=== PATIENT | female | born 1970 | race Two or more races ===

== ENCOUNTER 2019-01-02 01:51 | Emergency (ER) | payer OTHER ==
[~2019-01-02] VITALS: Ht 154.9 cm; Wt 49.0 kg
--- NOTE | 2019-01-02 02:26 | NUR ---
BARREL BRANDER AT BEDSIDE FOR BLOOD DRAW
--- NOTE | 2019-01-02 02:27 | NUR ---
PT UNABLE TO PROVIDE URINE SAMPLE AT THIS TIME. MD AWAN
--- NOTE | 2019-01-02 02:31 | NUR ---
ULTRASOUND AT BEDSIDE
[2019-01-02 02:42] LABS: CALCIUM, SERUM 8.3 mg/dL (8.5-10.1); CREATININE 0.7 mg/dL (0.6-1.3); POTASSIUM 3.7 mmol/L (3.5-5.1)
[2019-01-02 02:47] LABS: BASOPHILS % (AUTO) 0.4 % (0.0-2.0); EOSINOPHILS % (AUTO) 1.4 % (0.0-6.0); HEMATOCRIT 31 % (33-45); HEMOGLOBIN 10.7 g/dL (11.5-14.8); LYMPHOCYTES # (AUTO) 2.9 /CMM (0.8-4.8); LYMPHOCYTES % (AUTO) 37.2 % (20.0-44.0); MEAN CORPUSCULAR HGB CONC 35 g/dl (31.0-36.0); MEAN CORPUSCULAR VOLUME 98 fL (82-100); MONOCYTES # (AUTO) 0.6 /CMM (0.1-1.30); MONOCYTES % (AUTO) 7.8 % (2.0-12.0); NEUTROPHILS # (AUTO) 4.1 /CMM (1.8-8.9); NEUTROPHILS % (AUTO) 53.2 % (43.0-81.0); PLATELET COUNT (AUTO) 274 /CMM (150-450); RED BLOOD CELL COUNT(AUTO) 3.13 MIL/uL (4.0-5.2); WHITE BLOOD COUNT (AUTO) 7.8 K/uL (4.3-11.0)
--- NOTE | 2019-01-02 02:58 | NUR ---
PT UNABLE TO PROVIDE URINE SAMPLE AT THIS TIME. AWARE. PROVIDED PT WITH WATER
--- NOTE | 2019-01-02 03:38 | NUR ---
PT UNABLE TO PROVIDE URINE SAMPLE, AWARE
--- NOTE | 2019-01-02 04:45 | NUR ---
PT UNABLE TO PROVIDE URINE SAMPLE, AWARE
--- NOTE | 2019-01-02 05:40 | NUR ---
PT UNABLE TO PROVIDE URINE SAMPLE. MD AWAN
--- NOTE | 2019-01-02 05:54 | NUR ---
URINE COLLECTED AND SENT TO LAB
[2019-01-02 06:01] LABS: APPEARANCE,URINE Clear (CLEAR); BILIRUBIN,URINE Negative (NEGATIVE); BLOOD, URINE Small Ery/uL (NEGATIVE); COLOR,URINE Yellow (YELLOW); KETONES,URINE 15 (NEGATIVE); LEUKOCYTE ESTERASE ,URINE Negative (NEGATIVE); NITRITE, URINE Negative (NEGATIVE); PROTEIN,URINE Trace mg/dl (NEGATIVE); UGLUCOSE Negative (NEGATIVE); UROBILINOGEN,URINE 0.2 EU/dL (0.2)
--- NOTE | 2019-01-02 06:15 | NUR ---
Patient discharged to home in stable condition. Written and verbal after care instructions given. Patient verbalizes understanding of instruction. Pt ambulatory with a steady gait.
[2019-01-02 06:18] VITALS: BP 110/68
[2019-01-02 06:45] LABS: BACTERIA,URINE None seen /HPF (None Seen); RBC,URINE 0-2 /HPF (0-2); SQUAMOUS EPITHELIAL CELL,UR None Seen /HPF (None Seen); WBC,URINE NONE SEEN /HPF (0-3)
[2019-01-02] MEDS ORDERED: FOLI1TAB16 PO (10:56)
[2019-01-02] MEDS ORDERED: AZEL205. BNOSTRILS (10:56)
[2019-01-02] MEDS ORDERED: CYAN10009 PO (10:56)
[2019-01-02] MEDS ORDERED: CHOL100044 PO (10:56)
[2019-01-02] MEDS ORDERED: NORG1TAB11 PO (10:56)
[2019-01-04] MEDS ORDERED: PROG100C15 PO (09:16)
[2019-01-04] MEDS ORDERED: FERR325T23 PO (09:16)
== END 2019-01-02 06:18 | disposition home or self-care (01) ==
LOC: ER 01:51
DX: D25.9 Leiomyoma of uterus, unspecified (principal); N93.9 Abnormal uterine and vaginal bleeding, unspecified; D64.9 Anemia, unspecified
CPT/HCPCS: 36415; 76856-TC; 80048-TC; 81000-TC; 84703-TC; 85025-TC

== ENCOUNTER 2019-01-02 09:39 | Inpatient (IN) | payer OTHER ==
[~2019-01-02] VITALS: Ht 154.9 cm; Wt 60.3 kg
[2019-01-02] VITALS (9 sets, daily range): BP systolic 88–113; BP diastolic 52–62
--- NOTE | 2019-01-02 10:00 | NUR ---
PATIENT BIB [facility] FROM MD OFFICE. WITH REPORT OF NEAR SYNCOPAL EPISODE. PATIENT DENIES REMEMBERING WHAT HAPPENED. VERBALIZES SHE JUST REMEMBERS LYING DOWN ON THE FLOOR. DENIES ANY PAIN OR DISCOMFORT. ALERT AND ORIENTED X 4, NO ACUTE DISTRESS.
--- NOTE | 2019-01-02 10:05 | NUR ---
DR BEAL AT BEDSIDE
[2019-01-02 10:22] LABS: BASOPHILS % (AUTO) 0.4 % (0.0-2.0); EOSINOPHILS % (AUTO) 0.2 % (0.0-6.0); HEMATOCRIT 22 % (33-45); HEMOGLOBIN 7.9 g/dL (11.5-14.8); LYMPHOCYTES # (AUTO) 2.2 /CMM (0.8-4.8); LYMPHOCYTES % (AUTO) 25.7 % (20.0-44.0); MEAN CORPUSCULAR HGB CONC 36 g/dl (31.0-36.0); MEAN CORPUSCULAR VOLUME 97 fL (82-100); MONOCYTES # (AUTO) 0.4 /CMM (0.1-1.30); MONOCYTES % (AUTO) 5.2 % (2.0-12.0); NEUTROPHILS # (AUTO) 5.9 /CMM (1.8-8.9); NEUTROPHILS % (AUTO) 68.5 % (43.0-81.0); PLATELET COUNT (AUTO) 228 /CMM (150-450); RED BLOOD CELL COUNT(AUTO) 2.29 MIL/uL (4.0-5.2); WHITE BLOOD COUNT (AUTO) 8.6 K/uL (4.3-11.0)
[2019-01-02 10:25] LABS: CALCIUM, SERUM 7.9 mg/dL (8.5-10.1); CREATININE 0.8 mg/dL (0.6-1.3); POTASSIUM 3.4 mmol/L (3.5-5.1)
[2019-01-02] MEDS ORDERED: IV NS 0.9% 1,000 ML BAG IV ONE (10:30)
[2019-01-02 10:32] LABS: ALBUMIN 3.3 g/dL (3.4-5.0); BILIRUBIN,DIRECT 0.1 mg/dL (0.0-0.2); BILIRUBIN,TOTAL 0.4 mg/dL (0.2-1.0)
--- NOTE | 2019-01-02 10:40 | NUR ---
PATIENT WITH C/O FEELING NAUSEATED, NO VOMITING EPISODE. DR RIVAS MADE AWARE AND WITH NEW ORDER FOR ZOFRAN 4MG IV X 1
[2019-01-02] MEDS ORDERED: ONDANSETRON HCL/PF 4 MG/2 ML VIAL ONE (10:45)
--- NOTE | 2019-01-02 10:46 | NUR ---
VIOLETA [phone]
--- NOTE | 2019-01-02 10:54 | NUR ---
VERIFIED ZOFRAN ORDER. PATIENT TO HAVE ZOFRAN 4MG IV X1 DOSE. GIVEN ORDERED. WILL CONTINUE TO MONITOR
[2019-01-02] MEDS ORDERED: CYAN10009 PO (10:56)
[2019-01-02] MEDS ORDERED: AZEL205. BNOSTRILS (10:56)
[2019-01-02] MEDS ORDERED: CHOL100044 PO (10:56)
[2019-01-02] MEDS ORDERED: FOLI1TAB16 PO (10:56)
[2019-01-02] MEDS ORDERED: NORG1TAB11 PO (10:56)
[2019-01-02] MEDS ORDERED: ONDANSETRON HCL/PF - ER 4 MG/2 ML VIAL IV ONE (11:00)
[2019-01-02] MEDS ORDERED: ONDANSETRON HCL/PF 4 MG/2 ML VIAL IVP ONE (11:00)
--- NOTE | 2019-01-02 11:01 | NUR ---
PT GOING TO 313.1
--- NOTE | 2019-01-02 11:11 | NUR ---
REPORT GIVEN TO WILLIAM COLÓN FOR DORCAS
--- NOTE | 2019-01-02 11:43 | NUR ---
PATIENT TRANSFERRED TO [facility] BY [facility] VIA ACLS PROTOCOL. RECEIVING RN AT BEDSIDE. PATIENT AWAKE, ALERT AND ORIENTED X 4, NO CHANGES IN LOC NOTED. NO ACUTE DISTRESS. NO NEW SKIN BREAKDOWN. BELONGINGS AT BEDSIDE
--- NOTE | 2019-01-02 12:30 | NUR ---
Tele/RN - Admission Received patient from ER, alert and oriented x 4, denies chest pain/dizziness/palpitation, tele shows SR. Admitted for Syncope/Anemia under the care of Dr. Taylor. Patient oriented to room, all belongings accounted for. Saline lock on the RFA is patent and intact. Skin assessment done, no skin breakdown, refused photo to be taken. Fall and safety precautions initiated. Awaiting for admission orders from Dr. Taylor. Will continue to monitor and intervene as needed.
[2019-01-02] MEDS ORDERED: ACETAMINOPHEN 325 MG TABLET PO PRN (13:00)
[2019-01-02] MEDS ORDERED: ZOLPIDEM TARTRATE 5 MG TABLET PO PRN (13:00)
[2019-01-02] MEDS ORDERED: MAG HYDROX/AL HYDROX/SIMETH 30 ML UDC PO PRN (13:00)
[2019-01-02] MEDS ORDERED: MAGNESIUM HYDROXIDE 30 ML UDC PO PRN (13:00)
[2019-01-02] MEDS ORDERED: Z GUARD REMEDY 2 OZ OINT TP PRN (13:00)
[2019-01-02] MEDS ORDERED: HYDROCODONE/APAP 5/325MG 1 EACH TABLET PO PRN (13:00)
[2019-01-02] MEDS ORDERED: ONDANSETRON HCL/PF 4 MG/2 ML VIAL IVP PRN (13:00)
[2019-01-02] MEDS: IV NS 0.9% 1,000 ML IV PRN (13:20)
--- NOTE | 2019-01-02 14:05 | NUR ---
Tele/RN - Notes Patient resting comfortably, feels weak, denies dizziness when ambulating to the bathroom, tele shows SR. IVF infusing well. All needs attended. Will continue to monitor closely for any profuse vaginal bleeding.
--- NOTE | 2019-01-02 18:06 | NUR ---
Tele/RN - End of shift summary Patient remain afebrile, denies pain, no c/o dizziness, tele shows SR. IVF NS at 125 ml/hr infusing well on the RFA with no signs of infiltration. Patient still with vaginal bleeding, reported that today she had a total of 4 episodes of saturated vaginal pads and 1 that is light saturated, monitor hemoglobin and hematocrit, blood drawn at 17:45, will f/u result. All needs attended. Will continue with current plan of care and will endorse to night nurse accordingly.
[2019-01-02 18:20] LABS: HEMOGLOBIN 6.9 g/dL (11.5-14.8)
--- NOTE | 2019-01-02 18:33 | NUR ---
Tele/RN - Critical result Received a call from lab at 18:19 for hemoglobin of 6.9 and hematocrit of 20, relayed results to Dr. Taylor with order to transfuse 1 unit PRBC for hemoglobin <7.0. Patient signed the consent for blood transfusion.
--- NOTE | 2019-01-02 19:30 | NUR ---
OLIVER FILTER OPERATOR OPENING NOTES RECEIVED PATIENT IN BED AWAKE, ALERT AND ORIENTED X4, VERBALLY RESPONSIVE, ABLE TO MAKE NEEDS KNOWN. FRIEND AT BESIDE. BREATHING EVEN AND UNLABORED. NO SOB NOTED. TOLERATING ROOM AIR. NO COMPLAINTS OF PAIN OR DISCOMFORT. NO FACIAL GRIMACING. IV ON RIGHT FOREARM INTACT AND PATENT WITH IVF INFUSING. SKIN DRY AND WARM TO TOUCH. AFEBRILE. PATIENT FOR BLOOD TRANSFUSION TONIGHT. CONSENTS SIGNED. ALL OTHER NEEDS MET. SAFETY MEASURES IN PLACE. INSTRUCTED TO USE CALL LIGHT PRIOR TO STANDING UP SO NURSE/WELDER GUN CAN ASSIST. WILL CONTINUE TO MONITOR.
--- NOTE | 2019-01-02 21:00 | NUR ---
MEN'S FURNISHINGS SALESPERSON NOTES PATIENT STARTED ON BLOOD TRANSFUSION. WILL CONTINUE TO MONITOR.
--- NOTE | 2019-01-02 23:33 | NUR ---
FRAME COVERER NOTES PATIENT IS S/P 1 UNIT OF PRBC. PATIENT TOLERATED WELL. NO S/S OF ADVERSE REACTIONS. PATIENT'S BP ON THE LOW SIDE. LAST BP WAS 90/58 HR 78. WILL INFORM TRANSFORMER MECHANIC MD.
[2019-01-03] VITALS: BP 84/54
--- NOTE | 2019-01-03 00:26 | NUR ---
TELEVISION PICTURE TUBE REBUILDER NOTES CURRENT BP - 84/54 HR 81. INFORMED WAITER/WAITRESS CAPTAIN GOYO SZYMANSKI REGARDING LOW BP AND THAT PATIENT IS S/P 1 UNIT PRBC. INFORMED HIM ALSO THAT DURING BLOOD TRANSFUSION, PATIENT'S SBP WERE IN THE 90S. NO ACTIVE BLEEDING RIGHT NOW. PATIENT STATED THAT SHE IS JUST SPOTTING WHICH IS BETTER THAN WHAT IT WAS BEFORE. PER WAITER/WAITRESS CAPTAIN GOYO SZYMNASKI, NO ORDERS RIGHT NOW. JUST CONTINUE TO MONITOR.
[2019-01-03] MEDS: IV NS 0.9% 1,000 ML IV PRN ×3 (03:06→23:52)
[2019-01-03 04:00] VITALS: BP 85/48
--- NOTE | 2019-01-03 06:40 | NUR ---
ICE SCRAPER CLOSING NOTES PATIENT RESTING IN BED. NO ACUTE CHANGES. NO DISTRESS. S/P 1 UNIT OF PRBC TRANSFUSION LAST NIGHT. NO ADVERSE REACTIONS NOTED THROUGHOUT SHIFT. BREATHING EVEN AND UNLABORED. NO SOB NOTED. TOLERATING ROOM AIR. IV ON RIGHT FOREARM INTACT AND PATENT WITH IVF INFUSING WELL. NO COMPLAINTS OF PAIN OR DISCOMFORT. NO FACIAL GRIMACING. PATIENT HAD CHANGED HER PAD ONCE LAST NIGHT. PER PATIENT IT HAD BLOOD CLOTS/SPOTS, BETTER THAN IT WAS. BP REMAINS LOW - RN INTAKE GOYO SZYMANSKI AWARE. ALL OTHER NEEDS MET. SAFETY MEASURES IN PLACE. CALL LIGHT WITHIN REACH. WILL ENDORSE TO ONCOMING NURSE FOR DORCAS. Addendum: 01/03/19 at 0647 by SAMANTHA CORDOVA RN CORRECTION: PATIENT HAD BLOOD SPOTS ONLY. NO BLOOD CLOTS.
--- NOTE | 2019-01-03 06:54 | NUR ---
CLOTH TESTER QUALITY NOTES PATIENT HAD JUST GONE TO THE RESTROOM, AND PER PATIENT, HER PAD WAS SATURATED WITH BLOOD. IT WAS ONLY WHEN SHE GOT UP THAT SHE FELT A LOT OF BLOOD COME OUT. PER PATIENT A LOT OF IT WENT INTO THE TOILET BUT IT WOULD HAVE FILLED OUT HER WHOLE PAD. PER PATIENT SHE DOES NOT FEEL DIZZY OR ANYTHING. PATIENT CURRENTLY UP AND CLEANING HERSELF. WILL ENDORSE TO ONCOMING NURSE.
--- NOTE | 2019-01-03 07:10 | NUR ---
PARENT PARTNER OPENING NOTES RECEIVED PATIENT IN BED AWAKE, ALERT AND ORIENTED X4, VERBALLY RESPONSIVE, ABLE TO MAKE NEEDS KNOWN. BREATHING EVEN AND UNLABORED. NO SOB NOTED. TOLERATING ROOM AIR. NO COMPLAINTS OF PAIN OR DISCOMFORT. NO FACIAL GRIMACING. IV ON RIGHT FOREARM INTACT AND PATENT WITH IVF INFUSING. SKIN DRY AND WARM TO TOUCH. AFEBRILE. SAFETY MEASURES IN PLACE. INSTRUCTED TO USE CALL LIGHT PRIOR TO STANDING UP SO NURSE/EXTERNAL AUDITOR CAN ASSIST. WILL CONTINUE TO MONITOR.
[2019-01-03 07:30] LABS: BASOPHILS % (AUTO) 0.4 % (0.0-2.0); HEMATOCRIT 21 % (33-45); HEMOGLOBIN 7.3 g/dL (11.5-14.8); LYMPHOCYTES # (AUTO) 1.6 /CMM (0.8-4.8); LYMPHOCYTES % (AUTO) 33.8 % (20.0-44.0); MEAN CORPUSCULAR HGB CONC 35 g/dl (31.0-36.0); MEAN CORPUSCULAR VOLUME 95 fL (82-100); MONOCYTES # (AUTO) 0.3 /CMM (0.1-1.30); MONOCYTES % (AUTO) 7.2 % (2.0-12.0); NEUTROPHILS # (AUTO) 2.8 /CMM (1.8-8.9); NEUTROPHILS % (AUTO) 57.6 % (43.0-81.0); PLATELET COUNT (AUTO) 161 /CMM (150-450); RED BLOOD CELL COUNT(AUTO) 2.18 MIL/uL (4.0-5.2); WHITE BLOOD COUNT (AUTO) 4.8 K/uL (4.3-11.0)
[2019-01-03 07:51] LABS: CALCIUM, SERUM 7.2 mg/dL (8.5-10.1); CREATININE 0.5 mg/dL (0.6-1.3); MAGNESIUM 1.9 mg/dL (1.8-2.4); PHOSPHORUS 2.1 mg/dL (2.5-4.9); POTASSIUM 3.9 mmol/L (3.5-5.1)
[2019-01-03 07:55] LABS: THYROID STIMULATING HORMONE 3.266 uIU/mL (0.358-3.74)
[2019-01-03 08:00] VITALS: BP 95/54
[2019-01-03 09:07] LABS: IRON, SERUM 20 ug/dl (50-175); TOTAL IRON BINDING CAPACITY 286 ug/dl (250-450)
--- NOTE | 2019-01-03 10:05 | NUR ---
MS RN NOTES SPOKE WITH PATIENT'S HOSPITALIST ABOUT UPDATING PATIENT'S MEDICATION RECONCILIATION. AWAITING FOR UPDATE.
[2019-01-03 11:40] LABS: FERRITIN 12 ng/mL (8-388)
[2019-01-03] MEDS ORDERED: K PHOS NEUTRAL 250 MG TABLET PO ONE ×2 (13:30)
[2019-01-03] MEDS ORDERED: SOD FERRIC GLUC 125 MG in IV NS 0.9% 100 ML IV SCH (14:00)
[2019-01-03 16:00] VITALS: BP 89/56
--- NOTE | 2019-01-03 19:10 | NUR ---
WHEELCHAIR RENTAL CLERK CLOSING NOTES PATIENT IN BED AWAKE, ALERT AND ORIENTED X4, VERBALLY RESPONSIVE, ABLE TO MAKE NEEDS KNOWN. BREATHING EVEN AND UNLABORED. NO SOB NOTED. TOLERATING ROOM AIR. NO COMPLAINTS OF PAIN OR DISCOMFORT. NO FACIAL GRIMACING. IV ON RIGHT FOREARM INTACT AND PATENT WITH IVF INFUSING AT 125ML/HR, TOLERATING WELL. SKIN DRY AND WARM TO TOUCH. AFEBRILE. SAFETY MEASURES IN PLACE. INSTRUCTED TO USE CALL LIGHT PRIOR TO STANDING UP SO NURSE/MENTAL HEALTH ASSISTANT CAN ASSIST. NO ACUTE CHANGES THROUGHOUT SHIFT. ALL MD ORDERS ATTENDED. ENDORSED TO PHYSICIAN OFFICE REP NURSE FOR DORCAS.
[2019-01-03 20:00] VITALS: BP 93/63
[2019-01-03 20:08] VITALS: BP 93/63
--- NOTE | 2019-01-03 20:40 | NUR ---
RN NOTES RECEIVED PATIENT IN BED, ALERT AND ORIENTED X4, STABLE ON ROOM AIR, DENIES PAIN AT THIS TIME, NO COMPLAIN OF DIZZINESS UPON STANDING, BP 93/63, ON NS AT 125 CC/HR, REPORTED VAGINAL BLEEDING, WILL CONTINUE TO MONITOR
[2019-01-03] MEDS: MOMETASONE FUROATE NASAL SUSP 17 GM BOTTLE SCH (23:00)
[2019-01-04 06:31] LABS: BASOPHILS % (AUTO) 0.6 % (0.0-2.0); EOSINOPHILS % (AUTO) 1.9 % (0.0-6.0); HEMOGLOBIN 7.1 g/dL (11.5-14.8); LYMPHOCYTES # (AUTO) 1.6 /CMM (0.8-4.8); LYMPHOCYTES % (AUTO) 29.4 % (20.0-44.0); MEAN CORPUSCULAR HGB CONC 36 g/dl (31.0-36.0); MEAN CORPUSCULAR VOLUME 95 fL (82-100); MONOCYTES # (AUTO) 0.4 /CMM (0.1-1.30); MONOCYTES % (AUTO) 6.5 % (2.0-12.0); NEUTROPHILS # (AUTO) 3.4 /CMM (1.8-8.9); NEUTROPHILS % (AUTO) 61.6 % (43.0-81.0); PLATELET COUNT (AUTO) 156 /CMM (150-450); RED BLOOD CELL COUNT(AUTO) 2.09 MIL/uL (4.0-5.2); WHITE BLOOD COUNT (AUTO) 5.6 K/uL (4.3-11.0)
[2019-01-04 06:57] LABS: CALCIUM, SERUM 7.3 mg/dL (8.5-10.1); CREATININE 0.4 mg/dL (0.6-1.3); HEMATOCRIT 20 % (33-45); MAGNESIUM 1.8 mg/dL (1.8-2.4); PHOSPHORUS 2.2 mg/dL (2.5-4.9); POTASSIUM 3.4 mmol/L (3.5-5.1)
--- NOTE | 2019-01-04 07:24 | NUR ---
RN NOTES HGB 7.1, NOTIFIED DR. ASHFORD, NEW ORDER OF MEGACE 20 MG QD, PER MD WILL SEE PT TODAY
--- NOTE | 2019-01-04 07:29 | NUR ---
RN NOTES PATIENT IS ALERT AND ORIENTED, STABLE ON ROOM AIR, AMBULATES TO THE TOILET, ACTIVELY BLEEDING, VAGINAL PADS REPLACED X2, DR. ASHFORD WILL SEE PT TODAY
--- NOTE | 2019-01-04 07:30 | NUR ---
MS RN Opening Notes Patient currently asleep, resting in bed. Semi-Fowlers position, supine. Alert and oriented x4, able to make needs known. No complaints of shortness of breath or chest pain at this time. Respirations even and unlabored on room air. Peripheral IV to the left forearm 22 gauge, intact, patent and infusing fluids as ordered. Updated patient on current plan of care and safety measures. Safety and fall precautions in place: bed in lowest and locked position, side rails up x2, bed alarm on, call light and personal possessions within reach. Room well lit and floor clear of items. Reminded patient of safety measures, verbalized understanding. Patient currently clean, dry and comfortable. Current hemoglobin 7.1; Dr. Ashraf aware. Will continue to monitor and intervene as needed.
[2019-01-04] MEDS: IV NS 0.9% 1,000 ML IV PRN (07:35)
[2019-01-04 08:00] VITALS: BP 94/59
[2019-01-04] MEDS ORDERED: MEGESTROL ACETATE 40 MG TABLET PO SCH (09:00)
[2019-01-04] MEDS ORDERED: POTASSIUM CHLORIDE 20 MEQ TAB.PRT.SR PO SCH (09:00)
[2019-01-04] MEDS: MOMETASONE FUROATE NASAL SUSP 17 GM BOTTLE SCH (09:00)
[2019-01-04] MEDS ORDERED: PROG100C15 PO (09:16)
[2019-01-04] MEDS ORDERED: FERR325T23 PO (09:16)
--- NOTE | 2019-01-04 11:29 | NUR ---
MS automatic developer Notes Patient alert and oriented x4, able to make needs known. No complaints of shortness of breath or chest pain at this time. Respirations even and unlabored on room air. Peripheral IV to the left forearm 22 gauge removed with catheter tip intact. No redness, swelling or bleeding of the site noted. Ambulates with steady gait, no dizziness or syncope. MD aware of vital signs, including blood pressure. Okay to discharge, patient to follow-up outpatient with OB-AUTHORIZATION REPRESENTATIVE Dr. Ashraf on Sunday. Discharged with all personal belongings as noted per form. Discharge education and Exitcare provided to patient, verbalized understanding and verified via signature on discharge form. Patient provided new prescription. Escorted to front lobby by staff readiness officer and transported home by private care accompanied by family friend.
== END 2019-01-04 11:22 | disposition home or self-care (01) | DRG 812 ==
LOC: ER 09:39 → TELE 11:11 → MED 01-03 08:17
PROVIDERS: ADMIT Student in an Organized Health Care Education/Training Program; ATTEND Student in an Organized Health Care Education/Training Program
PROC: 30233N1 Transfusion of Nonautologous Red Blood Cells into Peripheral Vein, Percutaneous Approach (ICD-10-PCS; principal; 2019-01-02)
DX: D62 Acute posthemorrhagic anemia (principal); E44.1 Mild protein-calorie malnutrition; N17.9 Acute kidney failure, unspecified; E87.1 Hypo-osmolality and hyponatremia; E86.1 Hypovolemia; D25.9 Leiomyoma of uterus, unspecified; N93.9 Abnormal uterine and vaginal bleeding, unspecified; E87.6 Hypokalemia; Z79.3 Long term (current) use of hormonal contraceptives; N92.1 Excessive and frequent menstruation with irregular cycle
CPT/HCPCS: 36415; 71045-TC; 80048-TC; 80061-TC; 80076-TC; 82728-TC; 83540-TC; 83735-TC; 84100-TC; 84443-TC; 84484-TC; 84702-TC; 85025-TC; 85027-TC; 86850-TC; 86921-TC; 87081-TC; 93307-TC; G0378; J2405; J2916; J7030; J7040; P9016-BL